=== PATIENT | female | born 1975 ===

== ENCOUNTER 2016-08-04 05:36 | Emergency (ER) | payer MEDICAID ==
[2016-08-04 05:37] VITALS: BMI 46.5
[2016-08-04] MEDS ORDERED: Albuterol-Ipratrop 3 mg / 0.5 (3 ml) UD INH STA ×2 (05:40→06:18)
[2016-08-04 06:10] VITALS: BP 126/71; PULSE 86; TEMP 98.2; O2SAT 99
[2016-08-04 06:12] VITALS: RESP 17
[2016-08-04] MEDS ORDERED: Dexamethasone 4 mg/1 ml IM STA (06:19)
[2016-08-04] MEDS ORDERED: Dexamethasone 4 mg/1 ml ONE (06:29)
--- NOTE | 2016-08-04 07:04 | C.PDOC ---
History Of Present Illness The patient, a 40 y/o female with PMHx of Asthma, presents to the ED via EMS for evaluation of asthma exacerbation involving shortness of breath and chest tightness which began prior to arrival. Patient states she took two albuterol treatments via inhaler at home with no relief. Patient also received one albuterol treatment via EMS and one upon arrival to ED with mild improvement. Patient requests steroid injection in the ED. She denies fever, chills, and cough. Time Seen by Provider: 08/04/16 06:15 Chief Complaint (Nursing): Shortness Of Breath History Per: Patient, EMS History/Exam Limitations: no limitations Onset/Duration Of Symptoms: Hrs Current Symptoms Are (Timing): Better Quality: Tightness Current Respiratory Medications: See Home Med List, Albuterol Associated Symptoms: denies: Fever, Bloody Cough, Productive Cough Additional History Per: Patient Past Medical History Reviewed: Historical Data, Nursing Documentation, Vital Signs Vital Signs: Last Vital Signs Temp 98.2 F 08/04/16 05:45 Pulse 86 08/04/16 05:45 Resp 17 08/04/16 06:10 BP 126/71 08/04/16 05:45 Pulse Ox 99 08/04/16 07:09 - Medical History PMH: Anxiety, Asthma, Depression Denies: Chronic Kidney Disease Surgical History: - [facility] Procedures INJECT/INFUSE NEC (04/02/14) INTRODUCE OF OTH THERAP SUBST INTO RESP TRACT, VIA OPENING (04/24/16) NEBULIZER THERAPY (06/24/14) VITAL CAPACITY DETERMIN (06/24/14) Family History: States: Unknown Family Hx - Social History Hx Tobacco Use: No Hx Alcohol Use: No Hx Substance Use: No - Immunization History Hx Tetanus Toxoid Vaccination: No Hx Influenza Vaccination: Yes Hx Pneumococcal Vaccination: Yes Review Of Systems Except As Marked, All Systems Reviewed And Found Negative. Constitutional: Negative for: Fever, Chills Cardiovascular: Positive for: Chest Pain (chest tightness ) Respiratory: Positive for: Shortness of Breath. Negative for: Cough Physical Exam - Physical Exam Appears: Non-toxic, No Acute Distress Skin: Normal Color, Warm, Dry Head: Atraumatic, Normacephalic Eye(s): bilateral: Normal Inspection, EOMI Oral Mucosa: Moist Neck: Supple Chest: Symmetrical, No Deformity, No Tenderness Cardiovascular: Rhythm Regular, No Murmur Respiratory: No Rales, No Rhonchi, Wheezing (expiratory ) Back: Normal Inspection, No Vertebral Tenderness, No Paraspinal Tenderness Extremity: Normal ROM, Capillary Refill (less than 2 seconds) Neurological/Psych: Oriented x3, Normal Speech, Normal Cognition Gait: Steady ED Course And Treatment O2 Sat by Pulse Oximetry: 99 (on RA) Pulse Ox Interpretation: Normal Progress Note: Patient received Decadron IM, 2 duonebs. On reassessment, patient is resting comfortably, showing no signs of distress, and reports an improvement of her symptoms. Pt is stable for discharge and is advised to f/u with her PMD within a timely manner for further evaluation. 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 - Scribe Statement The provider has reviewed the documentation as recorded by the Scribe (Mariposa Martinez) All medical record entries made by the Scribe were at my direction and personally dictated by me. I have reviewed the chart and agree that the record accurately reflects my personal performance of the history, physical exam, medical decision making, and the department course for this patient. I have also personally directed, reviewed, and agree with the discharge instructions and disposition.
== END 2016-08-04 07:07 | disposition home or self-care (01) ==
LOC: C.ER 05:36
DX: J45.901 Unspecified asthma with (acute) exacerbation (principal)
CPT/HCPCS: 94640 ×2; 96372; 99284; J1100

== ENCOUNTER 2016-08-19 14:19 | Emergency (ER) | payer MEDICAID ==
[2016-08-19 14:19] VITALS: BMI 46.5
[2016-08-19 14:24] VITALS: TEMP 98.2
[2016-08-19] MEDS ORDERED: Albuterol-Ipratrop 3 mg / 0.5 (3 ml) UD ONE ×2 (14:40→15:59)
[2016-08-19] MEDS ORDERED: Sodium Chloride 0.9% 1,000 ML IV ONE (15:17)
[2016-08-19] MEDS ORDERED: Albuterol-Ipratrop 3 mg / 0.5 (3 ml) UD INH STA (15:17)
[2016-08-19] MEDS ORDERED: Sodium Chloride 0.9% 1,000 ML ONE (15:43)
[2016-08-19 16:06] LABS: CHLORIDE 103 mmol/L (98-107); POTASSIUM 3.8 mmol/L (3.6-5.2); SODIUM 137 mmol/L (132-148)
[2016-08-19 16:08] LABS: ALKALINE PHOSPHATASE 71 U/L (38-126); AST/SGOT 25 U/L (14-36); BILIRUBIN,TOTAL 0.8 mg/dL (0.2-1.3); CARBON DIOXIDE 19 mmol/L (22-30); GFR AFRICAN-AMERICAN > 60
[2016-08-19 16:09] LABS: ALT/SGPT 18 U/L (9-52); BLOOD UREA NITROGEN 4 mg/dL (7-17); CALCIUM 8.3 mg/dl (8.6-10.4); GLUCOSE,RANDOM 146 mg/dL (65-105)
--- NOTE | 2016-08-19 16:10 | C.PDOC ---
History Of Present Illness 40 year old female with a history of asthma and anxiety, presents to the ED with complaints of SOB and anxiety. Denies fever, chills, chest pain, cough, or any other complaints at this time. Time Seen by Provider: 08/19/16 14:41 Chief Complaint (Nursing): Shortness Of Breath History Per: Patient History/Exam Limitations: no limitations Onset/Duration Of Symptoms: Hrs Current Symptoms Are (Timing): Still Present Severity: Mild Associated Symptoms: denies: Fever, Chills, Chest Pain, Productive Cough Past Medical History Reviewed: Historical Data, Nursing Documentation, Vital Signs Vital Signs: Last Vital Signs Temp 98.2 F 08/19/16 14:20 Pulse 109 H 08/19/16 15:01 Resp 20 08/19/16 15:01 BP 110/63 08/19/16 15:01 Pulse Ox 97 08/19/16 16:12 - Medical History PMH: Anxiety, Asthma, Depression Surgical History: - [facility] Procedures INJECT/INFUSE NEC (04/02/14) INTRODUCE OF OTH THERAP SUBST INTO RESP TRACT, VIA OPENING (04/24/16) NEBULIZER THERAPY (06/24/14) VITAL CAPACITY DETERMIN (06/24/14) Family History: States: Unknown Family Hx - Social History Hx Tobacco Use: No Hx Alcohol Use: No Hx Substance Use: No - Immunization History Hx Tetanus Toxoid Vaccination: No Hx Influenza Vaccination: Yes Hx Pneumococcal Vaccination: Yes Review Of Systems Except As Marked, All Systems Reviewed And Found Negative. Constitutional: Negative for: Fever, Chills Cardiovascular: Negative for: Chest Pain, Palpitations Respiratory: Positive for: Shortness of Breath. Negative for: Cough Psych: Positive for: Anxiety Physical Exam - Physical Exam Appears: Non-toxic, Other (+Mild respiratory distress) Skin: Normal Color, Warm, Dry Head: Atraumatic, Normacephalic Eye(s): bilateral: Normal Inspection Oral Mucosa: Moist Chest: Symmetrical, No Deformity Cardiovascular: Rhythm Regular Respiratory: No Accessory Muscle Use, Rhonchi (+Scattered rhonchi), Wheezing, Other (+Good air movement) Extremity: Normal ROM Neurological/Psych: Oriented x3, Normal Speech, Normal Cognition ED Course And Treatment - Laboratory Results Result Diagrams: 08/19/16 15:56 O2 Sat by Pulse Oximetry: 97 (Room air) Pulse Ox Interpretation: Normal Progress Note: EKG and Blood work ordered and reviewed. patient treated with DuoNeb and IV fluids. Critical Care Time - Critical Care Note Total Time (in mins): 90 Documented critical care: time excludes all time spent performing seperately billable procedures. Medical Decision Making Medical Decision Making: recurrent reactive airway dz Disposition Doctor Will See Patient In The: Office Counseled Patient/Family Regarding: Studies Performed, Diagnosis - Disposition Disposition: HOME/ ROUTINE Disposition Time: 16:39 Condition: GOOD - Clinical Impression Clinical Impression: Exacerbation of asthma - Scribe Statement The provider has reviewed the documentation as recorded by the Scribe Suly Crum. Provider Attestation: All medical record entries made by the Scribe were at my direction and personally dictated by me. I have reviewed the chart and agree that the record accurately reflects my personal performance of the history, physical exam, medical decision making, and the department course for this patient. I have also personally directed, reviewed, and agree with the discharge instructions and disposition.
[2016-08-19 16:52] LABS: BASO # 0.1 K/uL (0.0-0.2); EOS # 0.1 K/uL (0.0-0.7); LYMPH # 2.3 K/uL (1.0-4.3); MEAN CELL VOLUME 68.3 fL (81.0-99.0); NRBC % 0.1 % (0.0-2.0); PLATELET COUNT 399 K/uL (130-400)
[2016-08-19 16:54] VITALS: BP 112/66; PULSE 96; RESP 18; O2SAT 98
[2016-08-19 17:01] LABS: BASO % 0.8 % (0.0-2.0); EOS % 1.3 % (0.0-4.0); HEMATOCRIT 33.6 % (34.0-47.0); LYMPH % 25.5 % (20.0-40.0); MEAN CORPUSCULAR HEMOGLOBIN 20.6 pg (27.0-31.0); MEAN CORPUSCULAR HGB CONC 30.2 g/dL (33.0-37.0); MEAN PLATELET VOLUME 6.3 fL (7.2-11.7); MONO # 0.3 K/uL (0.0-0.8); MONO % 3.3 % (0.0-10.0); RED CELL DISTRIBUTION WIDTH 22.1 % (11.5-14.5); WHITE BLOOD COUNT 9.1 K/uL (4.8-10.8)
[2016-08-19 19:00] LABS: NEUTROPHIL 91 % (50-75); TOTAL CELLS COUNTED 100
[2016-08-19 19:01] LABS: LARGE PLATELETS PRESENT
--- NOTE | 2016-08-20 12:23 | CARD ---
APPROVED REPORT EKG Measurement Heart [id number] <Conclusion> Sinus tachycardia Minimal voltage criteria for LVH, may be normal variant Cannot rule out Anterior infarct, age undetermined Abnormal ECG
== END 2016-08-19 16:54 | disposition home or self-care (01) ==
LOC: C.ER 14:19
DX: J45.901 Unspecified asthma with (acute) exacerbation (principal)
CPT/HCPCS: 80053; 85025; 93005; 94640; 96360; 99285; J7040

== ENCOUNTER 2016-10-06 13:06 | Emergency (ER) | payer MEDICAID ==
[2016-10-06 13:07] VITALS: BMI 46.5
[2016-10-06 13:11] VITALS: RESP 18
[2016-10-06] MEDS ORDERED: Albuterol-Ipratrop 3 mg / 0.5 (3 ml) UD IH STA (13:46)
[2016-10-06] MEDS ORDERED: Albuterol-Ipratrop 3 mg / 0.5 (3 ml) UD ONE (14:26)
--- NOTE | 2016-10-06 14:43 | C.PDOC ---
Time Seen by Provider: 10/06/16 13:37 Chief Complaint (Nursing): Cough, Cold, Congestion History Per: Patient Onset/Duration Of Symptoms: Days (few) Current Symptoms Are (Timing): Still Present Location Of Pain: Ear(s) Associated Symptoms: Cough, Sputum, Nasal Congestion Ear Symptoms: Left: Ear Fullness Severity: Moderate Additional History Per: Prior Records Past Medical History Reviewed: Historical Data, Nursing Documentation, Vital Signs Vital Signs: Last Vital Signs Temp 98.7 F 10/06/16 13:09 Pulse 111 H 10/06/16 13:09 Resp 18 10/06/16 13:09 BP 150/92 H 10/06/16 13:09 Pulse Ox 100 10/06/16 13:09 - Medical History PMH: Anxiety, Asthma, Depression Surgical History: - [facility] Procedures INJECT/INFUSE NEC (04/02/14) INTRODUCE OF OTH THERAP SUBST INTO RESP TRACT, VIA OPENING (04/24/16) NEBULIZER THERAPY (06/24/14) VITAL CAPACITY DETERMIN (06/24/14) Family History: States: Unknown Family Hx - Social History Hx Tobacco Use: No Hx Alcohol Use: No Hx Substance Use: No - Immunization History Hx Tetanus Toxoid Vaccination: No Hx Influenza Vaccination: Yes Hx Pneumococcal Vaccination: Yes Review Of Systems Except As Marked, All Systems Reviewed And Found Negative. Constitutional: Negative for: Fever, Weakness ENT: Positive for: Nose Congestion. Negative for: Ear Discharge Cardiovascular: Negative for: Chest Pain Respiratory: Positive for: Cough. Negative for: Hemoptysis Gastrointestinal: Negative for: Vomiting, Abdominal Pain Musculoskeletal: Negative for: Neck Pain, Back Pain, Leg Pain Skin: Negative for: Rash Neurological: Negative for: Weakness, Numbness, Seizures, Altered Mental Status Physical Exam - Physical Exam Appears: Non-toxic, No Acute Distress Skin: Normal Color, Warm, Dry, No Rash Head: Atraumatic, Normacephalic Eye(s): bilateral: PERRL, EOMI Ear(s): Left: TM Erythema, Other (Effusion), Right: Normal Throat: Normal Neck: Normal ROM, Supple Cardiovascular: Rhythm Regular Respiratory: No Accessory Muscle Use, Wheezing Gastrointestinal/Abdominal: Soft, No Tenderness Back: No CVA Tenderness Extremity: Normal ROM Neurological/Psych: Oriented x3, Normal Motor, Normal Sensation ED Course And Treatment ECG: Interpreted By Me, Viewed By Me ECG Rhythm: Sinus Tachycardia, Nonspecific Changes Rate From EC O2 Sat by Pulse Oximetry: 100 Pulse Ox Interpretation: Normal Progress Note: Lungs clear. Reassessment Condition: Improved Progress - Interventions Interventions:: Observation - Medications Administered Oral: Corticosteriod Inhaled nebulized: Anticholinergic, Beta-2 agonist - Data Reviewed Data Reviewed: EKG, Old records - Patient Status Patient status: Mostly improved - Continuity of Care Discussed patient case with:: Patient, ED Nurse - Patient Plan Patient Plan: Discharge, F/U with PCP, Continue present meds Disposition Counseled Patient/Family Regarding: Studies Performed, Diagnosis, Need For Followup, Rx Given - Disposition Disposition: HOME/ ROUTINE Disposition Time: 14:44 Condition: IMPROVED Additional Instructions: Follow up with your doctor. Return to the ER if you develop fever, shortness of breath, worsening of symptoms or if you have any other concerns. Prescriptions: Amoxicillin 875 mg PO BID #20 tab Oxymetazoline 0.05% [Oxymetazoline HCl 30 Ml] 2 sprays NS BID #1 bottle predniSONE [predniSONE Tab] 2 tab PO DAILY #8 tab Instructions: Otitis Media (ED) - Clinical Impression Clinical Impression: Asthma, Left otitis media with effusion
[2016-10-06 14:55] VITALS: BP 121/86; PULSE 103; TEMP 98.1; O2SAT 99
--- NOTE | 2016-10-09 08:11 | CARD ---
APPROVED REPORT EKG Measurement Heart [id number] <Conclusion> Sinus tachycardia Otherwise normal ECG
== END 2016-10-06 15:04 | disposition home or self-care (01) ==
LOC: C.ER 13:06
DX: J45.909 Unspecified asthma, uncomplicated (principal); H66.92 Otitis media, unspecified, left ear

== ENCOUNTER 2016-10-26 19:47 | Emergency (ER) | payer MEDICAID ==
[2016-10-26 19:47] VITALS: BMI 46.5
[2016-10-26] MEDS ORDERED: Albuterol-Ipratrop 3 mg / 0.5 (3 ml) UD ONE ×2 (20:07→20:38)
[2016-10-26] MEDS ORDERED: Albuterol-Ipratrop 3 mg / 0.5 (3 ml) UD INH STA (20:29)
--- NOTE | 2016-10-26 20:37 | C.PDOC ---
History Of Present Illness 41 y/o female presents to the ED with complaints of SOB x1 day. Pt had 4-5 albuterol treatments with 1 amp albuterol each. Pt with regular presentations for asthma, SOB and anxiety. Pt also reports significant weight gain in the last year; frequently on steroids with increasing appetite. Denies fever, chills , chest pain, abdominal pain or any other complaints. Pt currently on zolair every 2 weeks, advair, singulair, and zyrtec tablets and inhaling treatments as needed. Per children, patient snores with apneic episodes, no diagnosis of sleep apnea. Pt takes omeprazole in the morning for GERD. Time Seen by Provider: 10/26/16 20:19 Chief Complaint (Nursing): Shortness Of Breath History Per: Patient History/Exam Limitations: no limitations Onset/Duration Of Symptoms: Hrs Current Symptoms Are (Timing): Still Present Current Respiratory Medications: Albuterol Severity: Moderate Associated Symptoms: denies: Fever, Chills, Chest Pain Recent travel outside of the [place]: No Past Medical History Reviewed: Historical Data, Nursing Documentation, Vital Signs Vital Signs: Last Vital Signs Temp 97.7 F 10/26/16 21:12 Pulse 98 H 10/26/16 21:12 Resp 18 10/26/16 21:12 BP 111/67 10/26/16 21:12 Pulse Ox 98 10/26/16 21:20 - Medical History PMH: Anxiety, Asthma, Depression Surgical History: - [facility] Procedures INJECT/INFUSE NEC (04/02/14) INTRODUCE OF OTH THERAP SUBST INTO RESP TRACT, VIA OPENING (04/24/16) NEBULIZER THERAPY (06/24/14) VITAL CAPACITY DETERMIN (06/24/14) Family History: States: Unknown Family Hx - Social History Hx Tobacco Use: No Hx Alcohol Use: No Hx Substance Use: No - Immunization History Hx Tetanus Toxoid Vaccination: No Hx Influenza Vaccination: Yes Hx Pneumococcal Vaccination: Yes Review Of Systems Except As Marked, All Systems Reviewed And Found Negative. Constitutional: Positive for: Other (weight gain). Negative for: Fever, Chills Cardiovascular: Negative for: Chest Pain Respiratory: Positive for: Shortness of Breath Gastrointestinal: Negative for: Nausea, Vomiting Physical Exam - Physical Exam Appears: Non-toxic, No Acute Distress, Other (Morbidly obese, plethoric face, buffalo hump) Skin: Warm, Dry, No Rash Head: Atraumatic, Normacephalic Nose: Normal Oral Mucosa: Moist Throat: Normal, No Erythema Neck: Normal, Normal ROM, Supple Chest: Symmetrical Cardiovascular: Rhythm Regular, No Murmur Respiratory: No Rales, No Rhonchi, Wheezing (scant) Gastrointestinal/Abdominal: Soft, Other (globus abdomen, vertical dark colored stria on lateral abdomen bilaterally) Extremity: Normal ROM, Other (extremities obese without edema) Extremity: Bilateral: Atraumatic Neurological/Psych: Oriented x3, Normal Speech, Normal Cognition ED Course And Treatment O2 Sat by Pulse Oximetry: 98 (room air) Pulse Ox Interpretation: Normal Progress Note: Plan: nebulizer treatment, pepcid, prednisone Medical Decision Making Medical Decision Making: Pt is gaining weight at a startling rate. 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 Harley Face, buffalo hump, supraclavicular fat pads, central obesity and abdominal straia are noted as steadily worstening over time. Many ED visits in past 3 yrs and 10 visits in past 6 months where steroids likely prescribed (by ED staff alone, and not considering outpatient visits) suggest the pt may CONSTANTLY on an oral steroid regimen for more than past 6 months. Consider Dexamethason Suppresion Test, 24 hour cortisol and creatinine levels, ACTH level, cholesterol panels, and HGB A1C GERD from obesity and perpetual steroids inappropriately treated with Omeprazole in AM instead of QHS or even Q12H. Diet hygiene educated. Increase to Q12H and GI f/u PRN s/s of OSCAR are obvious to family and considering weight gain, probably worstening. Refer to Dr. Steinberg for Sleep Study and CPAP sleep mask Depression and anxiety are also probably- at least in part- related to [place] Syndrome, and exacerbated by sleep apnea. Though explained that pt's steroid use should be minimized, pt insists on IV and PO steroids, perhaps her underlying anxiety has her presenting to ED and PMD more frequently, leading to almost consistently taking exogenous steroids. Strict minimization of exogenous steroids by prescribers should be followed. Enhanced Asthma teaching and nebulized/inhaled treatments maximized. Disposition Doctor Will See Patient In The: Office Counseled Patient/Family Regarding: Studies Performed, Diagnosis - Disposition Referrals: Adrian Steinberg MD [Staff Provider] - Hawk Irving MD [Medical Doctor] - Disposition: HOME/ ROUTINE Disposition Time: 21:15 Condition: GOOD Additional Instructions: Highly suspect Felipa Syndrome due to prolonged exposures to high levels of cortisol/exogenous steroids from asthma treatment. Consider Dexamethason Suppresion Test, 24 hour cortisol and creatinine levels , ACTH level, cholesterol panels, and HGB A1C GERD from obesity and perpetual steroids inappropriately treated with Omeprazole in AM instead of QHS or even Q12H. Diet hygiene educated. Increase to Q12H and GI f/u PRN Sleep Apnea: Refer to Dr. Steinberg for Sleep Study and CPAP sleep mask Depression and anxiety are also probably- at least in part- related to Felipa Syndrome. Caution with sedative sleep medications in pt with Sleep Apnea Strict minimization of exogenous steroids by prescribers should be followed. Enhanced Asthma teaching and nebulized/inhaled treatments maximized. Duonebs with TWO ampules every 4 hours as needed will improve asthma symptoms. Prednisone 40 mg daily for 4 more days. Continue daily Zolari, Advair, Singular, Zyrtec as previously. Prescriptions: Albuterol/Ipratropium [Duoneb 3 MG/3 Ml-0.5 MG/3 Ml 3 Ml] 6 ml IH Q4H PRN #100 neb PRN Reason: asthma Omeprazole 20 mg PO Q12 #60 capsule. Prednisone [Deltasone] 40 mg PO DAILY #8 tablet Instructions: Asthma (ED), Snoring (ED), [place] Syndrome (ED), Gastroesophageal Reflux Disease (ED) - Clinical Impression Clinical Impression: Asthma, [place] syndrome - Scribe Statement The provider has reviewed the documentation as recorded by the Bernard Venegas Provider Attestation: All medical record entries made by the Bernard were at my direction and personally dictated by me. I have reviewed the chart and agree that the record accurately reflects my personal performance of the history, physical exam, medical decision making, and the department course for this patient. I have also personally directed, reviewed, and agree with the discharge instructions and disposition.
[2016-10-26 21:12] VITALS: BP 111/67; PULSE 98; RESP 18; TEMP 97.7
[2016-10-26 21:15] VITALS: O2SAT 98
--- NOTE | 2016-10-29 21:31 | CARD ---
APPROVED REPORT EKG Measurement Heart [id number] <Conclusion> Sinus tachycardia Nonspecific T wave abnormality Abnormal ECG
== END 2016-10-26 22:26 | disposition home or self-care (01) ==
LOC: C.ER 19:47
DX: J45.909 Unspecified asthma, uncomplicated (principal); E24.9 Cushing's syndrome, unspecified
CPT/HCPCS: 93005; 94640; 96374; 99284; J2930

== ENCOUNTER 2017-02-11 04:55 | Emergency (ER) | payer MEDICAID ==
[2017-02-11 04:56] VITALS: BMI 46.5
[2017-02-11] MEDS ORDERED: Albuterol-Ipratrop 3 mg / 0.5 (3 ml) UD ONE ×2 (05:01→05:37)
--- NOTE | 2017-02-11 05:12 | C.PDOC ---
History Of Present Illness pt presents with wheezing. States she woke up with some wheezing. No f/c/n/ v.Received neb en route. Speaking in complete sentences. Time Seen by Provider: 02/11/17 05:12 Chief Complaint (Nursing): Shortness Of Breath History Per: Patient History/Exam Limitations: no limitations Onset/Duration Of Symptoms: Hrs Current Symptoms Are (Timing): Still Present Initiating Event: Other Exacerbating Factor(s): Coughing Current Respiratory Medications: See Home Med List Severity: Moderate Pain Scale Rating Of: 4 Associated Symptoms: Anxiety. denies: Fever, Chills, Sweating Reports Recently: Seen In ED, Treated By A Physician, Hospitalized Recent travel outside of the [place]: No Additional History Per: Patient Past Medical History Reviewed: Historical Data, Nursing Documentation, Vital Signs Vital Signs: Last Vital Signs Temp 97.5 F L 02/11/17 05:06 Pulse 94 H 02/11/17 05:06 Resp 26 H 02/11/17 05:41 BP 122/80 02/11/17 05:06 Pulse Ox 100 02/11/17 05:41 - Medical History PMH: Anxiety, Asthma, Depression Denies: Chronic Kidney Disease Surgical History: - [facility] Procedures INJECT/INFUSE NEC (04/02/14) INTRODUCE OF OTH THERAP SUBST INTO RESP TRACT, VIA OPENING (04/24/16) NEBULIZER THERAPY (06/24/14) VITAL CAPACITY DETERMIN (06/24/14) Family History: States: No Known Family Hx - Social History Hx Tobacco Use: No Hx Alcohol Use: No Hx Substance Use: No - Immunization History Hx Tetanus Toxoid Vaccination: No Hx Influenza Vaccination: Yes Hx Pneumococcal Vaccination: Yes Review Of Systems Constitutional: Negative for: Fever, Chills Eyes: Negative for: Redness ENT: Negative for: Throat Pain Cardiovascular: Negative for: Chest Pain Respiratory: Positive for: Shortness of Breath, Wheezing Gastrointestinal: Negative for: Nausea, Vomiting, Abdominal Pain Genitourinary: Negative for: Dysuria Musculoskeletal: Negative for: Back Pain Skin: Negative for: Rash Neurological: Negative for: Weakness Psych: Positive for: Anxiety (mild) Physical Exam - Physical Exam Appears: Non-toxic Skin: Normal Color, Dry Head: Normacephalic Eye(s): bilateral: Normal Inspection Oral Mucosa: Moist Neck: Supple Chest: Symmetrical Cardiovascular: Rhythm Regular Respiratory: No Rales, Rhonchi (few), Wheezing (bases) Gastrointestinal/Abdominal: Soft, No Tenderness, Other (obese) Back: No CVA Tenderness Extremity: No Tenderness Extremity: Bilateral: Atraumatic Pulses: Left Dorsalis Pedis: Normal, Right Dorsalis Pedis: Normal Gait: Steady ED Course And Treatment O2 Sat by Pulse Oximetry: 98 Pulse Ox Interpretation: Normal Reevaluation Time: 06:10 Reassessment Condition: Improved Disposition Counseled Patient/Family Regarding: Studies Performed, Diagnosis, Need For Followup, Rx Given - Disposition Referrals: Uziel Agrawal Jr., MD [Non-Staff] - Disposition: HOME/ ROUTINE Disposition Time: 05:12 Condition: FAIR Prescriptions: Prednisone [Deltasone] 20 mg PO DAILY #5 tablet Instructions: Asthma (DC) Forms: [facility] (Bhutanese) - Clinical Impression Clinical Impression: Exacerbation of asthma
[2017-02-11] MEDS ORDERED: Dexamethasone 6 MG in Sodium Chloride 0.9% 50 ML IM STA (05:19)
[2017-02-11] MEDS: Albuterol-Ipratrop 3 mg / 0.5 (3 ml) UD IH SCH ×3 (05:30→05:48)
[2017-02-11 06:30] VITALS: BP 107/85; PULSE 103; RESP 20; TEMP 97.6; O2SAT 96
== END 2017-02-11 06:30 | disposition home or self-care (01) ==
LOC: C.ER 04:55
DX: J45.901 Unspecified asthma with (acute) exacerbation (principal)
CPT/HCPCS: 96372; 99284; J1100

== ENCOUNTER 2017-07-27 01:41 | Emergency (ER) | payer MEDICAID ==
[2017-07-27 01:42] VITALS: BMI 46.5
[2017-07-27 01:55] VITALS: TEMP 97.7
[2017-07-27] MEDS ORDERED: Ipratropium 0.02% Inhal Soln (0.5 mg/2.5 ml) UD IH STA (01:58)
[2017-07-27] MEDS ORDERED: Albuterol-Ipratrop 3 mg / 0.5 (3 ml) UD IH STA (01:58)
[2017-07-27] MEDS ORDERED: Magnesium Sulfate 1 gm in D5W 1 GM/100 ML BAG IV STA (01:59)
[2017-07-27] MEDS ORDERED: Magnesium Sulfate 1 gm in D5W 1 GM/100 ML BAG IVPB ONE (02:07)
[2017-07-27] MEDS ORDERED: Albuterol-Ipratrop 3 mg / 0.5 (3 ml) UD ONE (02:28)
[2017-07-27] MEDS ORDERED: Ipratropium 0.02% Inhal Soln (0.5 mg/2.5 ml) UD IH ONE (02:28)
[2017-07-27 04:02] VITALS: BP 118/69; PULSE 103; RESP 22; O2SAT 95
--- NOTE | 2017-07-27 04:03 | RAD ---
EXAM: XR Chest, 1 View CLINICAL HISTORY: 41 years old, female; Pain; Chest pain; Additional info: Asthma exacerbation TECHNIQUE: Frontal view of the chest. COMPARISON: No relevant prior studies available 2:15 AM 07/27/2017. FINDINGS: Limitations: The study is limited by the patient's large body habitus. Lungs: Low lung volumes. Mild bibasilar opacities secondary to atelectasis or infiltrate. Pleural space: Unremarkable. No pneumothorax. Heart: The heart demonstrates mild diffuse enlargement. Mediastinum: Unremarkable. IMPRESSION: Hypoventilatory changes. Mild bibasilar atelectasis or infiltrate.
--- NOTE | 2017-07-27 04:31 | C.PDOC ---
History Of Present Illness Patient c/o SOB and wheezing for the last 6 days. Patient has h/o asthma and is using neb and asthma pump. However cough and wheezing are progressively getting worse. Patient denies fever, denies sick contacts. Patient was BIBEMS, got 1 Duoneb and Solu-medrol 125 mg IV. Chief Complaint (Nursing): Respiratory Distress History Per: Patient History/Exam Limitations: no limitations Onset/Duration Of Symptoms: Days (6) Current Symptoms Are (Timing): Worse Quality: Tightness Current Respiratory Medications: Albuterol Past Medical History Reviewed: Historical Data, Nursing Documentation, Vital Signs Vital Signs: Last Vital Signs Temp 97.7 F 07/27/17 01:49 Pulse 103 H 07/27/17 04:02 Resp 22 07/27/17 04:02 BP 118/69 07/27/17 04:02 Pulse Ox 95 07/27/17 04:02 - Medical History PMH: Anxiety, Asthma, Depression Denies: Chronic Kidney Disease Surgical History: - [facility] Procedures INJECT/INFUSE NEC (04/02/14) INTRODUCE OF OTH THERAP SUBST INTO RESP TRACT, VIA OPENING (04/24/16) NEBULIZER THERAPY (06/24/14) VITAL CAPACITY DETERMIN (06/24/14) Family History: States: Unknown Family Hx - Social History Hx Tobacco Use: No Hx Alcohol Use: No Hx Substance Use: No - Immunization History Hx Tetanus Toxoid Vaccination: No Hx Influenza Vaccination: Yes Hx Pneumococcal Vaccination: Yes Review Of Systems Except As Marked, All Systems Reviewed And Found Negative. Physical Exam - Physical Exam Appears: Non-toxic, No Acute Distress Skin: Normal Color, Warm, Dry Head: Atraumatic, Normacephalic Eye(s): bilateral: Normal Inspection Throat: Normal, No Erythema, No Exudate Neck: Normal, Supple Chest: Symmetrical, No Deformity, No Tenderness Cardiovascular: Rhythm Regular (tachycardic) Respiratory: Wheezing (b/l) Gastrointestinal/Abdominal: Normal Exam, Soft, No Tenderness Extremity: Normal ROM, No Tenderness Neurological/Psych: Oriented x3, Normal Speech, Normal Cognition ED Course And Treatment O2 Sat by Pulse Oximetry: 95 - Other Rad CXR X-Ray: Viewed By Me, Read By Radiologist Interpretation: Accession No. : [id number]. Patient Name / ID : SARAH MERRILL / [id number]. Exam Date : 07/27/2017 02:14:45 ( Approved ). Study Comment : Sex / Age : F / 41Y. Creator : RENETTA JOHNSON. Dictator : Manager Food : Senior Linux Administrator : RENETTA JOHNSON. Approver2 : Report Date : 2017 04:03:00. My Comment : . [facility] Division of Radiology. [address] [place] [address]. Tel. no. . . . Patient Name: DESIRAE SMITH . Pt. Address: [address] [place] [address]. Rec #: [id number]. [place] [address]: Deb Stein PA-C. Pt Phone: Order Location: [facility]. : 1975 Female Age: 41 Order #: [id number]. Reason for exam: asthma exacerbation. . . . . . Radiology. . . CHEST PORTABLE Exam Date: 07/27/17. . This imaging exam was performed at [facility]. EXAM: XR Chest, 1 View. . CLINICAL HISTORY: 41 years old, female; Pain; Chest pain; Additional info: Asthma exacerbation. . TECHNIQUE: Frontal view of the chest. . COMPARISON: No relevant prior studies available 2:15 AM 07/27/2017. . FINDINGS: Limitations : The study is limited by the patient's large body habitus. Lungs: Low lung volumes. Mild bibasilar opacities secondary to atelectasis. or infiltrate. Pleural space: Unremarkable. No pneumothorax. Heart: The heart demonstrates mild diffuse enlargement. Mediastinum: Unremarkable. . IMPRESSION: Hypoventilatory changes. Mild bibasilar atelectasis or infiltrate. . Dictated By: Renetta Johnson MD. Dictated Date/Time: 07/27/17402. Signed By: Renetta Johnson MD. Date Signed: 07/27/17402. Transcribed By: [facility]. Transcribe Date/Time: 07/27/17402 Progress Note: Patient was treated with Duoneb and Albuterol via neb, Magn sulph IV, Avelox po with improvement. On re-evaluation, mild diffuse expiratory wheezing, speaks in full sentences, afebrile. Patient will be d/c home with instructions to f/u with her Pallet Stone Inserter within 1-2 days. Disposition - Disposition Disposition: HOME/ ROUTINE Disposition Time: 04:35 Condition: STABLE Additional Instructions: Follow up with your PMD and [employer]let Stone Inserter within 1-2 days. Return to ED if feel worse. Prescriptions: Moxifloxacin [Avelox] 400 mg PO DAILY 10 Days #10 tab predniSONE [predniSONE Tab] 2 tab PO DAILY #8 tab Albuterol HFA [Ventolin HFA 90 mcg/actuation (8 g)] 1 puff IH .Q4-6H #1 inhaler Instructions: Asthma in Adults, Pneumonia in Adults - Clinical Impression Clinical Impression: Exacerbation of asthma, Pneumonia
== END 2017-07-27 04:48 | disposition home or self-care (01) ==
LOC: C.ER 01:41
DX: J45.901 Unspecified asthma with (acute) exacerbation (principal); J18.9 Pneumonia, unspecified organism
CPT/HCPCS: 71045; 96365; 99285; J3475

== ENCOUNTER 2018-02-07 20:43 | Emergency (ER) | payer MEDICAID ==
[2018-02-07 20:44] VITALS: BMI 46.5
[2018-02-07 20:59] VITALS: O2SAT 97
[2018-02-07 21:07] VITALS: RESP 17
[2018-02-07 21:25] VITALS: BP 112/64; PULSE 118; TEMP 98.4
--- NOTE | 2018-02-07 21:30 | C.PDOC ---
History Of Present Illness 42 year old female presents to the emergency department with complaints of shortness of breath. Patient reports many prior presentations of panic attacks and asthma. Patient states that she used a nebulizer treatment 4-5 times, which set off her latest panic/tachypnic attack. Solu-Medrol given in field. Time Seen by Provider: 02/07/18 21:15 Chief Complaint (Nursing): Shortness Of Breath History Per: Patient, EMS History/Exam Limitations: no limitations Onset/Duration Of Symptoms: Hrs Current Symptoms Are (Timing): Still Present Past Medical History Reviewed: Historical Data, Nursing Documentation, Vital Signs Vital Signs: Last Vital Signs Temp 98.4 F 02/07/18 21:02 Pulse 118 H 02/07/18 21:02 Resp 17 02/07/18 21:04 BP 112/64 02/07/18 21:02 Pulse Ox 97 02/07/18 21:04 - Medical History PMH: Anxiety, Asthma, Back Problems, Depression, Migraine Denies: Alzheimer's Disease, Chronic Kidney Disease Surgical History: - [facility] Procedures INJECT/INFUSE NEC (04/02/14) INTRODUCE OF OTH THERAP SUBST INTO RESP TRACT, VIA OPENING (04/24/16) NEBULIZER THERAPY (06/24/14) VITAL CAPACITY DETERMIN (06/24/14) Family History: States: No Known Family Hx - Social History Hx Tobacco Use: No Hx Alcohol Use: No Hx Substance Use: No - Immunization History Hx Tetanus Toxoid Vaccination: No Hx Influenza Vaccination: Yes Hx Pneumococcal Vaccination: Yes Review Of Systems Except As Marked, All Systems Reviewed And Found Negative. Constitutional: Negative for: Fever, Chills Respiratory: Positive for: Cough, Shortness of Breath Gastrointestinal: Negative for: Nausea, Vomiting Physical Exam - Physical Exam Appears: Non-toxic, No Acute Distress, Other (brooke-face) Skin: Warm, Dry Head: Atraumatic, Normacephalic Eye(s): bilateral: Normal Inspection, PERRL, EOMI Nose: Normal Oral Mucosa: Moist Neck: Other (supraclavicular fat-pad) Chest: Symmetrical, No Tenderness Cardiovascular: Rhythm Regular, No Murmur Respiratory: Normal Breath Sounds, No Rales, No Rhonchi, No Wheezing Gastrointestinal/Abdominal: Soft, No Tenderness, No Guarding, No Rebound, Other (central obesity. Abdominal vertical stria.) Back: Other (buffalo hump) Extremity: Normal ROM, Other (thin lower extremities) Neurological/Psych: Oriented x3, Normal Speech, Normal Cognition ED Course And Treatment O2 Sat by Pulse Oximetry: 97 (RA) Pulse Ox Interpretation: Normal Reevaluation Time: 21:26 (clear lungs) Medical Decision Making Medical Decision Making: ? 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 Has not presented for f/u. Sleep Apnea: dx by symptoms and very likely consider body habitus. Referred to Dr. Steinberg for Sleep Study 10/26, "Still hasn't called for appt" Again, referred. Disposition Doctor Will See Patient In The: Office Counseled Patient/Family Regarding: Studies Performed, Diagnosis - Disposition Referrals: [facility] [Outside] [facility] [Outside] [facility] [Outside] 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 Steinberg TOMORROW to schedule a Sleep Study in our hospital This can be done in the next 3-4 weeks as able. Instructions: Sleep Apnea, Lagrange's Syndrome, Asthma, Adult (DC), Anxiety, Adult (DC) Forms: [facility] (Occitan) - Clinical Impression Clinical Impression: Anxiety, Asthma, Felipa syndrome, Sleep apnea in adult - Scribe Statement The provider has reviewed the documentation as recorded by the Scribe (Reggie Silva) Provider Attestation: All medical record entries made by the Scribe were at my direction and personally dictated by me. I have reviewed the chart and agree that the record accurately reflects my personal performance of the history, physical exam, medical decision making, and the department course for this patient. I have also personally directed, reviewed, and agree with the discharge instructions and disposition.
== END 2018-02-07 21:39 | disposition home or self-care (01) ==
LOC: C.ER 20:43
DX: E24.9 Cushing's syndrome, unspecified (principal); G47.30 Sleep apnea, unspecified; F41.9 Anxiety disorder, unspecified; J45.909 Unspecified asthma, uncomplicated

== ENCOUNTER 2018-10-01 09:21 | Emergency (ER) | payer MEDICAID ==
[2018-10-01 09:21] VITALS: BMI 38.2
[2018-10-01 09:39] VITALS: O2SAT 96
[2018-10-01] MEDS ORDERED: Sodium Chloride 0.9% 1,000 ML IV ONE (09:46)
[2018-10-01] MEDS ORDERED: Albuterol-Ipratrop 3 mg / 0.5 (3 ml) UD INH STA (09:49)
--- NOTE | 2018-10-01 09:50 | C.PDOC ---
History Of Present Illness 43-year-old female presents to the emergency department with complaints of left sided abdominal pain for the past few days. Patient states that she feels like her abdomen is swollen and states she cannot take a deep breath. Patient states that she feels as if her asthma is acting up, states that she is using an inhaler. Patient denies chest pain and describes her abdominal pain as a swollen pressure. She denies nausea, vomiting, urinary changes, back pain, diarrhea, constipation, and . Patient denies being treated for her symptoms but states that she was evaluated at [place] one week ago where she was given nebulizer treatment and steroids. She reports being prescribed prednisone which she has since completed. Time Seen by Provider: 10/01/18 09:39 Chief Complaint (Nursing): Abdominal Pain History Per: Patient History/Exam Limitations: no limitations Onset/Duration Of Symptoms: Days Current Symptoms Are (Timing): Still Present Quality Of Discomfort: Pressure, Other (swelling) Associated Symptoms: denies: Fever, Chills, Nausea, Vomiting, Diarrhea, Constipation, Urinary Symptoms Past Medical History Reviewed: Historical Data, Nursing Documentation, Vital Signs Vital Signs: Last Vital Signs Temp 97.7 F 10/01/18 09:32 Pulse 104 H 10/01/18 09:32 Resp 22 10/01/18 09:32 BP 129/82 10/01/18 09:32 Pulse Ox 96 10/01/18 09:32 Primary Care Provider: Uziel Agrawal Jr. - Medical History PMH: Anxiety, Asthma, Back Problems, Depression, Migraine Denies: Alzheimer's Disease, Chronic Kidney Disease Surgical History: - [facility] Procedures INJECT/INFUSE NEC (04/02/14) INTRODUCE OF OTH THERAP SUBST INTO RESP TRACT, VIA OPENING (04/24/16) NEBULIZER THERAPY (06/24/14) VITAL CAPACITY DETERMIN (06/24/14) Family History: States: No Known Family Hx - Social History Hx Tobacco Use: No Hx Alcohol Use: No Hx Substance Use: No - Immunization History Hx Tetanus Toxoid Vaccination: Yes Hx Influenza Vaccination: No Hx Pneumococcal Vaccination: No Review Of Systems Except As Marked, All Systems Reviewed And Found Negative. Constitutional: Negative for: Fever, Chills Cardiovascular: Negative for: Chest Pain Respiratory: Positive for: Shortness of Breath. Negative for: Cough Gastrointestinal: Positive for: Abdominal Pain. Negative for: Nausea, Vomiting, Diarrhea, Constipation Genitourinary: Negative for: Dysuria, Frequency, Incontinence Physical Exam - Physical Exam Appears: Well, Non-toxic, No Acute Distress, Other (overweight) Skin: Normal Color, Warm, Dry Head: Atraumatic, Normacephalic Eye(s): bilateral: Normal Inspection, PERRL, EOMI Nose: Normal Oral Mucosa: Moist Neck: Normal, Supple Chest: Symmetrical, No Tenderness Cardiovascular: Rhythm Regular, No Murmur Respiratory: Normal Breath Sounds, No Rales, No Rhonchi, No Wheezing, Other (speaking in full sentences) Gastrointestinal/Abdominal: Soft, Tenderness (LLQ), No Guarding, No Rebound Back: No CVA Tenderness, No Decreased ROM Extremity: Normal ROM, No Calf Tenderness, No Swelling Extremity: Bilateral: Atraumatic Neurological/Psych: Oriented x3, Normal Speech, Normal Cognition ED Course And Treatment - Laboratory Results Result Diagrams: 10/01/18 10:22 10/01/18 11:09 ECG: Interpreted By Me, Viewed By Me ECG Rhythm: Sinus Rhythm Interpretation Of ECG: Normal sinus rhythm at 93bpm, nonspecific t wave abnormalities, no ST elevations O2 Sat by Pulse Oximetry: 96 (RA) Pulse Ox Interpretation: Normal - Radiology CXR: Interpreted by Me, Viewed By Me CXR Interpretation: Yes: No Acute Disease, Other (Poor inspiratory effort, low lung volumes) - Other Rad XR CHEST X-Ray: Read By Radiologist Interpretation: Accession No. : [id number]. Patient Name / ID : SARAH MERRILL / [id number]. Exam Date : 10/01/2018 09:49:20 ( Approved ). Study Comment : Sex / Age : F / 43Y. Creator : Laura Alonso. Dictator : Laura Alosno. Pump Oiler : Laborer General : Laura Keating. Approver2 : Report Date : 10/01/2018 10:32:50. My Comment : . Date of service: 10/01/2018. HISTORY: chest pain. COMPARISON: 07/27/2017. TECHNIQUE: Chest PA and lateral views. FINDINGS: LUNGS: Shallow lung volumes. No consolidation perceived. Limited left costophrenic angle visualization summation of soft tissues in this patient with large body habitus noted. PLEURA: No significant pleural effusion identified. No pneumothorax apparent. CARDIOVASCULAR: No aortic atherosclerotic calcification present. Cardiomegaly-similar no pulmonary vascular congestion. OSSEOUS STRUCTURES: No significant abnormalities. VISUALIZED UPPER ABDOMEN: Normal. OTHER FINDINGS: None. IMPRESSION: Shallow lung volumes-no interval superimposed acute cardiopulmonary pathology appreciated.. Cardiomegaly similar. - CT Scan/US CT ABD/PELVIS Other Rad Studies (CT/US): Read By Radiologist, Radiology Report Reviewed CT/US Interpretation: Accession No. : [id number]. Patient Name / ID : SARAH MERRILL / [id number]. Exam Date : 10/01/2018 12:21:30 ( Approved ). Study Comment : Sex / Age : F / 43Y. Creator : Maryan Larson. Dictator : Tucker Kamara MD. Pump Oiler : Laborer General : Tucker Kamara MD. Approver2 : Report Date : 10/01/2018 12:31:22. My Comment : . Date of service: 10/01/2018. PROCEDURE: CT Abdomen and Pelvis with contrast. HISTORY: Left lower quadrant abdominal pain. COMPARISON: None. TECHNIQUE: Multiple contiguous axial images were performed through the abdomen and pelvis with the use of intravenous contrast. Subsequently, sagittal and coronal reformatted images were obtained. Radiation dose: Total exam DLP = 1295.45 mGy-cm. This CT exam was performed using one or more of the following dose reduction techniques: Automated exposure control, adjustment of the mA and/or kV according to patient size, and/or use of iterative reconstruction technique. FINDINGS: LOWER THORAX: Mild atelectasis at the lung bases. Within the lower right hemithorax adjacent to the right heart on series 3, image 12, there is a rounded focal low-attenuation lesion measuring 3.2 centimeters and demonstrating a Hounsfield unit attenuation of 8. This may represent a small pericardial cyst however additional etiologies are not excluded. Correlation with chest CT may be helpful if clinically indicated. LIVER: Mild fatty infiltration of the liver. Focal low-attenuation foci within the left hepatic lobe measuring 6 millimeters, too small to adequately characterize. More prominent low- attenuation lesion measuring 3.8 centimeters in the inferior right hepatic lobe with a suggestion of peripheral nodular enhancement. This is of uncertain clinical etiology and may represent a prominent hemangioma however additional etiologies such as neoplasm cannot be excluded. Correlation with multiphasic contrast enhanced CT or MR would be helpful for further evaluation of this lesion. GALLBLADDER AND BILE DUCTS: Question punctate calculus at the gallbladder neck. No gross wall thickening or edema. PANCREAS: Fatty atrophy of the pancreas. SPLEEN: Unremarkable. ADRENALS: Unremarkable. No mass. KIDNEYS AND URETERS: Subtle peripheral low attenuation foci seen at the upper pole of the left kidney best demonstrated on coronal sequences. This is of uncertain clinical etiology and may represent some focal scarring however some mild acute infectious and or inflammatory changes such as a mild acute pyelonephritis cannot entirely be excluded. Clinical correlation. VASCULATURE: Unremarkable. No aortic aneurysm. No aortic atherosclerotic calcification or mural plaque present. BOWEL: Unremarkable. No obstruction. No gross mural thickening. APPENDIX: Normal appendix. PERITONEUM: Unremarkable. No free fluid. No free air. LYMPH NODES: Unremarkable. No enlarged lymph nodes. BLADDER: Unremarkable. REPRODUCTIVE: 3.4 centimeter left adnexal cyst. BON ES: Degenerative changes in the spine. OTHER FINDINGS: Moderate-sized fat containing umbilical hernia measuring up to 4.6 centimeters. IMPRESSION: 1. Subtle peripheral low attenuation foci seen at the upper pole of the left kidney best demonstrated on coronal sequences. This is of uncertain clinical etiology and may represent some focal scarring however some mild acute infectious and or inflammatory changes such as a mild acute pyelonephritis cannot entirely be excluded. Clinical correlation. 2. 3.4 centimeter left adnexal cyst. 3. Question punctate calculus at the gallbladder neck. No gross wall thickening or edema. 4. Fatty atrophy of the pancreas. 5. Moderate-sized fat containing umbilical hernia measuring up to 4.6 centimeters. 6. Prominent low-attenuation lesion measuring 3.8 centimeters in the inferior right hepatic lobe of the liver with a suggestion of peripheral nodular enhancement. This is of uncertain clinical etiology and may represent a prominent hemangioma however additional etiologies such as neoplasm cannot be excluded. Correlation with multiphasic contrast enhanced CT or MR would be helpful for further evaluation of this lesion. 7. Within the lower right hemithorax adjacent to the right heart on series 3, image 12, there is a rounded focal low-attenuation lesion measuring 3.2 centimeters and demonstrating a Hounsfield unit attenuation of 8. This may represent a small pericardial cyst however additional etiologies are not excluded. Correlation with chest CT may be helpful if clinically indicated. Medical Decision Making Medical Decision Making: Plan: CT Abdomen and Pelvis EKG Chemistry CBC CXR Albuterol Aspirin 81mg NaCl IV Fluids HCG Qualitative Urine Urinalysis 1242 10/01/18 Patient states she is feeling better s/p neb. Advised of all results thus far. Awaiting CT. Denies any UTI symptoms. UA reviewed with patient. Continues to appear well and comfortable. CT results and lab results discussed with patient. Will treat for Asthma exacerbation and possible UTI. Patient nontoxic, Well appearing. Not hypoxic. Patient prescribe Bactrim DS. Patient will be given prednisone for asthma. Advised close follow-up with her pMD. Disposition Counseled Patient/Family Regarding: Studies Performed, Diagnosis, Need For Followup, Rx Given - Disposition Referrals: Uziel Agrawal Jr., MD [Non-Staff] - Disposition: HOME/ ROUTINE Disposition Time: 13:21 Condition: GOOD Additional Instructions: Follow-up with your PMD. Return if symptoms worsen or persist. Prescriptions: Naproxen [Naprosyn] 500 mg PO BID 10 Days #20 tablet predniSONE [Prednisone] 40 mg PO DAILY #5 tab Sulfamethoxazole/Trimethoprim [Bactrim DS 800 mg-160 mg] 1 tab PO BID 10 Days #20 tab Instructions: Urinary Tract Infections in Adults, Asthma in Adults Forms: [facility] (Panamanian), General Discharge Instructions Print Language: CAPE VERDEAN - Clinical Impression Clinical Impression: UTI (urinary tract infection), Asthma - PA / STUDENT AFFAIRS DEAN / Resident Statement MD/DO has reviewed & agrees with the documentation as recorded. - Scribe Statement The provider has reviewed the documentation as recorded by the Scribe (Reggie Silva) All medical record entries made by the Scribe were at my direction and personally dictated by me. I have reviewed the chart and agree that the record accurately reflects my personal performance of the history, physical exam, medical decision making, and the department course for this patient. I have also personally directed, reviewed, and agree with the discharge instructions and disposition.
[2018-10-01] MEDS ORDERED: Albuterol-Ipratrop 3 mg / 0.5 (3 ml) UD ONE (10:28)
[2018-10-01] MEDS ORDERED: Iohexol 240 (50 ml) ONE (10:30)
[2018-10-01] MEDS ORDERED: Iohexol 240 (50 ml) PO ONE ×2 (10:31→11:35)
[2018-10-01 10:36] LABS: BASO # 0.1 K/uL (0.0-0.2); BASO % 0.5 % (0.0-2.0); EOS # 0.2 K/uL (0.0-0.7); EOS % 1.7 % (0.0-4.0); LYMPH # 0.8 K/uL (1.0-4.3); LYMPH % 7.4 % (20.0-40.0); MEAN PLATELET VOLUME 6.6 fL (7.2-11.7); MONO # 0.8 K/uL (0.0-0.8); MONO % 6.5 % (0.0-10.0); NEUT # 9.6 K/uL (1.8-7.0); NEUT % 83.9 % (50.0-75.0); NRBC % 0.1 % (0.0-2.0); RBC 5.12 Mil/uL (3.80-5.20); WHITE BLOOD COUNT 11.5 K/uL (4.8-10.8)
--- NOTE | 2018-10-01 10:36 | RAD ---
Date of service: 10/01/2018 HISTORY: chest pain COMPARISON: 07/27/2017 TECHNIQUE: Chest PA and lateral views FINDINGS: LUNGS: Shallow lung volumes. No consolidation perceived. Limited left costophrenic angle visualization summation of soft tissues in this patient with large body habitus noted. PLEURA: No significant pleural effusion identified. No pneumothorax apparent. CARDIOVASCULAR: No aortic atherosclerotic calcification present. Cardiomegaly-similar no pulmonary vascular congestion. OSSEOUS STRUCTURES: No significant abnormalities. VISUALIZED UPPER ABDOMEN: Normal. OTHER FINDINGS: None. IMPRESSION: Shallow lung volumes-no interval superimposed acute cardiopulmonary pathology appreciated.. Cardiomegaly similar.
[2018-10-01 10:41] LABS: MEAN CELL VOLUME 63.3 fL (81.0-99.0); PLATELET COUNT 534 K/uL (130-400)
[2018-10-01 10:42] LABS: HEMOGLOBIN 9.7 g/dL (11.0-16.0)
[2018-10-01 11:13] LABS: ANISOCYTOSIS MODERATE; EOSINOPHIL 1 % (0-4); LYMPHOCYTE 10 % (20-40); MONOCYTE 6 % (0-10); NEUTROPHIL 83 % (50-75); PLATELET ESTIMATE INCREASED (NORMAL); TOTAL CELLS COUNTED 100
[2018-10-01 11:18] LABS: HCG,QUALITATIVE URINE NEGATIVE (NEGATIVE)
[2018-10-01 11:26] LABS: HYPOCHROMIC MODERATE; MICROCYTOSIS MODERATE
[2018-10-01 11:29] LABS: SQUAMOUS EPITHIAL 25 /hpf (0-5); URINE BACTERIA RARE (<OCC); URINE BILIRUBIN NEGATIVE (NEGATIVE); URINE CLARITY Hazy (Clear); URINE COLOR Amber (YELLOW); URINE GLUCOSE (UA) NORMAL (Normal); URINE LEUKOCYTE ESTERASE 2+ Leu/uL (Negative); URINE PROTEIN 1+ mg/dL (NEGATIVE)
[2018-10-01 11:33] LABS: URINE BLOOD 1+ (NEGATIVE)
[2018-10-01 11:36] LABS: ALB/GLOB RATIO 1.2 (1.0-2.1); ALBUMIN 3.1 g/dL (3.5-5.0); ALT/SGPT 20 U/L (9-52); AST/SGOT 21 U/L (14-36); BLOOD UREA NITROGEN 8 mg/dL (7-17); GFR NON-AFRICAN AMERICAN > 60; LIPASE 11 U/L (23-300)
[2018-10-01] MEDS ORDERED: DiphenhydrAMINE 50 mg/ml Inj IVP STA (11:56)
[2018-10-01] MEDS ORDERED: DiphenhydrAMINE 50 mg/ml Inj ONE (12:04)
--- NOTE | 2018-10-01 13:02 | CT ---
Date of service: 10/01/2018 PROCEDURE: CT Abdomen and Pelvis with contrast HISTORY: Left lower quadrant abdominal pain COMPARISON: None. TECHNIQUE: Multiple contiguous axial images were performed through the abdomen and pelvis with the use of intravenous contrast. Subsequently, sagittal and coronal reformatted images were obtained. Radiation dose: Total exam DLP = 1295.45 mGy-cm. This CT exam was performed using one or more of the following dose reduction techniques: Automated exposure control, adjustment of the mA and/or kV according to patient size, and/or use of iterative reconstruction technique. FINDINGS: LOWER THORAX: Mild atelectasis at the lung bases. Within the lower right hemithorax adjacent to the right heart on series 3, image 12, there is a rounded focal low-attenuation lesion measuring 3.2 centimeters and demonstrating a Hounsfield unit attenuation of 8. This may represent a small pericardial cyst however additional etiologies are not excluded. Correlation with chest CT may be helpful if clinically indicated. LIVER: Mild fatty infiltration of the liver. Focal low-attenuation foci within the left hepatic lobe measuring 6 millimeters, too small to adequately characterize. More prominent low-attenuation lesion measuring 3.8 centimeters in the inferior right hepatic lobe with a suggestion of peripheral nodular enhancement. This is of uncertain clinical etiology and may represent a prominent hemangioma however additional etiologies such as neoplasm cannot be excluded. Correlation with multiphasic contrast enhanced CT or MR would be helpful for further evaluation of this lesion. GALLBLADDER AND BILE DUCTS: Question punctate calculus at the gallbladder neck. No gross wall thickening or edema. PANCREAS: Fatty atrophy of the pancreas. SPLEEN: Unremarkable. ADRENALS: Unremarkable. No mass. KIDNEYS AND URETERS: Subtle peripheral low attenuation foci seen at the upper pole of the left kidney best demonstrated on coronal sequences. This is of uncertain clinical etiology and may represent some focal scarring however some mild acute infectious and or inflammatory changes such as a mild acute pyelonephritis cannot entirely be excluded. Clinical correlation. VASCULATURE: Unremarkable. No aortic aneurysm. No aortic atherosclerotic calcification or mural plaque present. BOWEL: Unremarkable. No obstruction. No gross mural thickening. APPENDIX: Normal appendix. PERITONEUM: Unremarkable. No free fluid. No free air. LYMPH NODES: Unremarkable. No enlarged lymph nodes. BLADDER: Unremarkable. REPRODUCTIVE: 3.4 centimeter left adnexal cyst. BONES: Degenerative changes in the spine. OTHER FINDINGS: Moderate-sized fat containing umbilical hernia measuring up to 4.6 centimeters. IMPRESSION: 1. Subtle peripheral low attenuation foci seen at the upper pole of the left kidney best demonstrated on coronal sequences. This is of uncertain clinical etiology and may represent some focal scarring however some mild acute infectious and or inflammatory changes such as a mild acute pyelonephritis cannot entirely be excluded. Clinical correlation. 2. 3.4 centimeter left adnexal cyst. 3. Question punctate calculus at the gallbladder neck. No gross wall thickening or edema. 4. Fatty atrophy of the pancreas. 5. Moderate-sized fat containing umbilical hernia measuring up to 4.6 centimeters. 6. Prominent low-attenuation lesion measuring 3.8 centimeters in the inferior right hepatic lobe of the liver with a suggestion of peripheral nodular enhancement. This is of uncertain clinical etiology and may represent a prominent hemangioma however additional etiologies such as neoplasm cannot be excluded. Correlation with multiphasic contrast enhanced CT or MR would be helpful for further evaluation of this lesion. 7. Within the lower right hemithorax adjacent to the right heart on series 3, image 12, there is a rounded focal low-attenuation lesion measuring 3.2 centimeters and demonstrating a Hounsfield unit attenuation of 8. This may represent a small pericardial cyst however additional etiologies are not excluded. Correlation with chest CT may be helpful if clinically indicated.
[2018-10-01 13:24] VITALS: BP 118/85; PULSE 94; RESP 18; TEMP 98.1
--- NOTE | 2018-10-03 00:35 | CARD ---
APPROVED REPORT Date of service: 10/01/2018 EKG Measurement Heart [id number] <Conclusion> Normal sinus rhythm Moderate voltage criteria for LVH, may be normal variant Nonspecific T wave abnormality Abnormal ECG
== END 2018-10-01 14:28 | disposition home or self-care (01) ==
LOC: C.ER 09:21
DX: N39.0 Urinary tract infection, site not specified (principal); J45.901 Unspecified asthma with (acute) exacerbation
CPT/HCPCS: 71046; 74177; 80053; 81001; 83690; 84484; 84703; 85025; 94150; 94640; 96361; 96365; 96375; 99284; J0696; J1200; J7030; Q9966